=== PATIENT | female | born 1940 | race Caucasian/White ===

== ENCOUNTER 2016-09-05 05:26 | Emergency (ER) | payer OTHER ==
[2016-09-05 06:42] LABS: BASOPHIL % 0.1 % (0-2); PLATELET COUNT 223 x10^3mcL (130-400); RED CELL DISTRIBUTION WIDTH 13.8 % (11.5-14.5)
[2016-09-05 06:51] LABS: CALCIUM 9.5 mg/dL (8.5-10.1); CHLORIDE SERUM 103 mmol/L (98-107); CREATININE SERUM 1.1 mg/dL (0.6-1.0); GLUCOSE SERUM 185 mg/dL (74-106); SODIUM SERUM 141 mmol/L (136-145)
[2016-09-05 06:55] LABS: ALKALINE PHOSPHATASE 248 U/L (46-116); ALT/SGPT 16 U/L (14-59); AST/SGOT 19 U/L (15-37); BILIRUBIN TOTAL 0.5 mg/dL (0.20-1.00); CHOLESTEROL 166 mg/dL (<200); LIPASE 112 IU/L (73-393); TOTAL PROTEIN, SERUM 7.3 g/dL (6.4-8.2); TRIGLYCERIDES 51 mg/dL (<150)
[2016-09-05 06:56] LABS: ALBUMIN 3.1 g/dL (3.4-5.0); CHOLESTEROL/HDL RATIO 2.6; HDL CHOLESTEROL 65 mg/dL (40-60)
[2016-09-05 07:18] LABS: FREE T4 1.19 ng/dL (0.76-1.46); FREE THYROXINE INDEX 3.6 ug/dL (1.4-4.5); T4(THYROXINE) 10.7 ug/dL (4.7-13.3)
[2016-09-05 07:47] LABS: T3 TOTAL 0.87 ng/mL
[2016-09-05 08:01] LABS: microscopic required? YES; urine erythrocyte TRACE (NEGATIVE)
[2016-09-05 09:46] VITALS: BP 155/99
== END 2016-09-05 09:46 | disposition home or self-care (01) ==
LOC: ED 05:26
PROVIDERS: Specialist
DX: R11.2 Nausea with vomiting, unspecified (principal); I10 Essential (primary) hypertension; E03.9 Hypothyroidism, unspecified; Z85.59 Personal history of malignant neoplasm of other urinary tract organ
CPT/HCPCS: 83880; 84439; J1642; J1885; J2405; J3010; J7030; Q0092